=== PATIENT | female | born 1995 | race Hispanic/Latino ===

== ENCOUNTER 2017-06-12 22:51 | Inpatient (IN) | payer OTHER ==
[2017-06-12 23:16] VITALS: BMI 31.7
[2017-06-12 23:27] LABS: Hematocrit 34.8 % (36.0-47.0); Mean Platelet Volume 10.2 fL (7.4-10.4); Red Blood Cell (RBC) Count 4.54 mill/uL (4.20-5.40); White Blood Cell (WBC) Count 12.7 thou/uL (4.8-10.8)
[2017-06-12] MEDS ORDERED: Ondansetron HCl/PF 4 MG/2 ML Vial IVP PRN (23:42)
[2017-06-13] MEDS ORDERED: Misoprostol 200 MCG TAB PR PRN (00:08)
[2017-06-13] MEDS ORDERED: HYDROcodone/Acetaminophen 5/325 mg Tablet PO PRN ×3 (00:08→01:23)
[2017-06-13] MEDS ORDERED: LR / Pitocin 40 units/1000 ml 1,000 ML IV PRN (00:08)
[2017-06-13] MEDS ORDERED: Ibuprofen 800 MG TAB PO PRN (00:08)
[2017-06-13] MEDS ORDERED: Lidocaine 1% (PF) 30 ML VIAL SC PRN (00:08)
--- NOTE | 2017-06-13 00:11 | PDOC.LDHP ---
Labor and Delivery H&P Chief complaint: contractions HPI: pt presents to L&D [facility] for 20 mins. Denies ROM, but when she got here, there was water on the floor when she sat up Current gestational age (weeks): 39 Due date: 06/18/17 Dating criteria: last menstrual period (verifed with first trimester US at 8w) Grav: 2 Para: 1 Current complications: none Abnormal US findings: No Past Medical History: hx of CT prior to Current medications: pre-sandy vitamins, other (firocet, diclegis) Previous surgical history: none Allergies/Adverse Reactions: Allergies Allergy/AdvReac Type Severity Reaction Status Date / Time No Known Allergies Allergy Verified 06/12/17 23:17 Social history: tobacco use, alcohol use (prior to ) - Physical Exam Vital signs reviewed and normal: yes General: breathing through contractions Heart: RRR Lungs: CTAB Abdomen: gravid FHT: category 1 [place] contractions every: q1-2 - Vaginal Exam cm dilated: 6 Effacement: 100% Station: 1+ - OB Labs Blood type: O RH: positive HIV: negative RPR: negative HEPSAg: negative 1 hour GCT: negative GBS: negative - Assessment L&D Assessment: term patient in labor - Plan Plan: admit to L&D -: Anticipate
--- NOTE | 2017-06-13 00:42 | PDOC.OPDEL ---
OB Operative/Delivery Note Delivery Dr/Surgeon: Manju Montelongo CNM Pre-Delivery Diagnosis: active labor Procedure/Post Delivery Dx: spontaneous vaginal delivery Anesthesia: other (IV) - Findings A Sex: female Weight: 7 lb 2.08 oz - 5 min: 9 - Additional Findings/Plan Placenta delivered: spontaneous Repaired Obstetrical Laceration: none Estimated blood loss: 400 Post delivery plan: routine recovery
[2017-06-13] MEDS ORDERED: Bisacodyl 10 MG SUPP PR PRN (01:23)
[2017-06-13] MEDS ORDERED: Milk Of Magnesia 30 ML UDCUP PO PRN (01:23)
[2017-06-13] MEDS ORDERED: Ondansetron HCl/PF 4 MG/2 ML Vial IVP PRN ×2 (01:23→04:37)
[2017-06-13] MEDS ORDERED: Benzocaine/Menthol 20-0.5% 60 ML CAN TOP PRN (01:23)
[2017-06-13] MEDS ORDERED: LR / Pitocin 40 units/1000 ml 1,000 ML IV SCH (01:30)
[2017-06-13] MEDS ORDERED: Misoprostol 200 MCG TAB VAG SCH (01:30)
[2017-06-13] MEDS ORDERED: Carboprost 250 MCG/ML AMP ONE (03:34)
[2017-06-13] MEDS ORDERED: Fentanyl 100 MCG/2 ML VIAL ONE ×2 (03:44→04:19)
[2017-06-13] MEDS ORDERED: Carboprost 250 MCG/ML AMP IM ONE (03:50)
[2017-06-13] MEDS ORDERED: Midazolam HCl 2 mg/2 ml Vial ONE (03:52)
[2017-06-13 04:11] LABS: PTT 29.6 SEC (22.9-36.1); Prothrombin Time 13.5 SEC (12.0-14.7)
[2017-06-13 04:33] LABS: Band 1 % (5-11); Hematocrit 31.1 % (36.0-47.0); Hypochromia SLIGHT = 6-15 cells (100X) (0-5/hpf); Mean Platelet Volume 10.1 fL (7.4-10.4); Microcytosis MODERATE=15-30 cells (100X) (0-5/hpf); Neutrophil 84 % (42-75); Red Blood Cell (RBC) Count 4.06 mill/uL (4.20-5.40); White Blood Cell (WBC) Count 20.8 thou/uL (4.8-10.8)
[2017-06-13] MEDS ORDERED: Meperidine HCl/PF 25 MG/ML VIAL SLOW IVP PRN ×2 (04:37→06:10)
[2017-06-13] MEDS ORDERED: HYDROmorphone 2 MG/ML VIAL SLOW IVP PRN (04:37)
--- NOTE | 2017-06-13 04:45 | PDOC.EVN ---
Event Note - Event Note Event Note: I was called to the room for evaluation of bleeding 3 hours following precipitous delivery. EBL at time of delivery was 400ml, and another 132ml following this. At that time she received 800 ug of cytotec. On exam, there was a hemostatic laceration on the left vaginal sidewall. On bimanual exam, approximately 300 ml of clot was removed from the lower uterine segment. Cervix was difficult to visualize, so anesthesia was called for conscious sedation. After the patient was comfortable, further exam revealed no obvious vaginal or cervical lacerations. Approximately 200ml clot was removed from the lower uterine segment and a bakri balloon was placed. Placement in lower uterine segment confirmed on exam and on ultrasound. Total EBL (including delivery) was approximately 1300ml. VS remained stable. Labs drawn and pending. Patient tolerated the procedure well. Will continue to monitor.
[2017-06-13] MEDS ORDERED: Diphenoxylate HCl/Atropine Tablet PO PRN (04:51)
[2017-06-13 05:02] LABS: Fibrinogen 448 mg/dL (253-463)
[2017-06-13] MEDS: Ibuprofen 800 MG TAB PO SCH ×3 (06:09→22:24)
[2017-06-13 07:57] LABS: Hematocrit 30.7 % (36.0-47.0); Mean Platelet Volume 10.5 fL (7.4-10.4); Red Blood Cell (RBC) Count 3.99 mill/uL (4.20-5.40); White Blood Cell (WBC) Count 24.3 thou/uL (4.8-10.8)
[2017-06-13] MEDS ORDERED: Adacel (T-DAP) 0.5 ML VIAL IM ONE (09:00)
[2017-06-13] MEDS ORDERED: Measles/Mumps/Rubella 10 MCG/0.5 ML VIAL SC ONE (09:00)
--- NOTE | 2017-06-13 10:14 | PDOC.PP ---
Post Progress Note Post Day #: 0 -: pt is feeling well but c/o lower back pain and pain low in her abd Vital Signs (12 hours) Temp Pulse Resp BP 06/13/17 07:50 98.3 F 69 18 06/13/17 01:25 98.6 F 86 18 120/56 L 06/12/17 23:19 98.6 F 79 18 06/12/17 23:11 98.6 F 79 18 115/66 Weight Weight 185 lb - Physical Examination General: NAD Fundus firm & at: velasquez balloon in place. 30mls out in urometer Psychiatric: A&Ox3 Result Diagrams: 06/13/17 07:46 Additional Labs: Post Labs Blood Type O POSITIVE 06/12/17 23:16 Hep Bs Antigen Non-Reactive S/CO (NonReactive) 06/12/17 23:16 - Assessment/Plan A: G2now p2 s/p precipitous with late PPH and velasquez balloon placement by Dr Pollard 450ml from placement of [place] until 0700am From [id number] urine output was 60ml and blood was 30ml. P:Discussed case with Dr. Katz. Will plan to drain Velasquez Balloon gradually.
[2017-06-13] MEDS: HYDROcodone/Acetaminophen 5/325 mg Tablet PO PRN ×2 (12:19→16:13)
[2017-06-13] MEDS: Ferrous Sulfate 325 MG TAB PO SCH ×2 (15:40→16:13)
[2017-06-13] MEDS: Docusate (Surfak) 240 MG CAP PO SCH ×2 (15:40→22:24)
[2017-06-13] MEDS: Prenatal Vitamin 1 TAB PO SCH (15:41)
[2017-06-14] MEDS: Ibuprofen 800 MG TAB PO SCH ×3 (06:35→21:32)
[2017-06-14] MEDS: Prenatal Vitamin 1 TAB PO SCH (10:58)
[2017-06-14] MEDS: Ferrous Sulfate 325 MG TAB PO SCH ×2 (10:59→16:06)
[2017-06-14] MEDS: Docusate (Surfak) 240 MG CAP PO SCH ×2 (10:59→21:32)
--- NOTE | 2017-06-14 19:15 | PDOC.PP ---
Post Progress Note Post Day #: 1 PO intake tolerated: yes Flatus: yes Ambulation: yes Vital Signs (12 hours) Temp Pulse Resp BP 06/14/17 17:29 98.6 F 100 20 116/59 L 06/14/17 08:45 98.1 F 92 20 06/14/17 08:15 98.1 F 92 20 133/73 Weight Weight 185 lb - Physical Examination General: NAD Cardiovascular: no m/r/g Deviation from normal: tachycardia by auscultation Respiratory: clear to ausculation bilateral Abdominal: + bowel sounds, lochia (scant rubra) Fundus firm & at: -1 Extremities: negative homans (B) Skin: no rash Neurological: no gross focal deficits Psychiatric: A&Ox3 Result Diagrams: 06/13/17 07:46 Additional Labs: Post Labs Blood Type O POSITIVE 06/12/17 23:16 Hep Bs Antigen Non-Reactive S/CO (NonReactive) 06/12/17 23:16 (1) (spontaneous vaginal delivery) Code(s): O80 - ENCOUNTER FOR FULL-TERM UNCOMPLICATED DELIVERY Status: Acute (2) hemorrhage Code(s): O72.1 - OTHER IMMEDIATE HEMORRHAGE Status: Acute - Assessment/Plan A: PPD #1 s/p and PPH with genny balloon placement (performed by Dr. Pollard) P: Discontinue antibiotics Evaluate for discharge home tomorrow Lab/Radiology Result Diagrams: 06/13/17 07:46
[2017-06-14 21:21] VITALS: TEMP 98.5
[2017-06-15] MEDS: Ibuprofen 800 MG TAB PO SCH (06:29)
[2017-06-15 08:03] VITALS: BP 127/74
[2017-06-15] MEDS: Ferrous Sulfate 325 MG TAB PO SCH (08:57)
[2017-06-15] MEDS: Docusate (Surfak) 240 MG CAP PO SCH (08:58)
[2017-06-15] MEDS: Prenatal Vitamin 1 TAB PO SCH (08:58)
--- NOTE | 2017-06-15 10:34 | PDOC.PP ---
Post Progress Note Post Day #: 2 -: pt c/o pain in bw rectum and perinuim on right side. PO intake tolerated: yes Flatus: yes Ambulation: yes Vital Signs (12 hours) Temp Pulse Resp BP 06/15/17 08:02 98.5 F 102 H 20 127/74 06/15/17 07:50 98.5 F 102 H 20 Weight Weight 185 lb - Physical Examination General: NAD Cardiovascular: no m/r/g Deviation from normal: mild tachycardia with movement Respiratory: clear to ausculation bilateral Abdominal: + bowel sounds, lochia (minimal) Fundus firm & at: -2 Extremities: negative homans (B) Skin: no rash Neurological: no gross focal deficits Psychiatric: A&Ox3 Result Diagrams: 06/13/17 07:46 Additional Labs: Post Labs Blood Type O POSITIVE 06/12/17 23:16 Hep Bs Antigen Non-Reactive S/CO (NonReactive) 06/12/17 23:16 (1) (spontaneous vaginal delivery) Code(s): O80 - ENCOUNTER FOR FULL-TERM UNCOMPLICATED DELIVERY Status: Acute (2) hemorrhage Code(s): O72.1 - OTHER IMMEDIATE HEMORRHAGE Status: Acute Extended Physical Exam - Physical Exam Pelvic: nml external exam (Non tender bimanual exam. ) Rectal: hemorrhoids (painful to palpation) Neuro/Psych: oriented x3
== END 2017-06-15 12:25 | disposition home or self-care (01) | DRG 768 ==
LOC: L&D/OP 22:51 → L&D 23:18 → 3SE 06-13 09:43
PROVIDERS: ADMIT Obstetrics & Gynecology; ATTEND Obstetrics & Gynecology
PROC: 10E0XZZ Delivery of Products of Conception, External Approach (ICD-10-PCS; principal; 2017-06-13)
PROC: 0W3R7ZZ Control Bleeding in Genitourinary Tract, Via Natural or Artificial Opening (ICD-10-PCS; 2017-06-13)
DX: O71.82 Other specified trauma to perineum and vulva (principal); Z37.0 Single live birth; O72.1 Other immediate postpartum hemorrhage; K64.8 Other hemorrhoids; O62.3 Precipitate labor; Z3A.39 39 weeks gestation of pregnancy; Z87.891 Personal history of nicotine dependence; Z67.40 Type O blood, Rh positive
CPT/HCPCS: 36415; 76815; 85027; 85049; 85300; 85362; 85379; 85384; 85610; 85730; 86780; 86850; 86900; 86901; 87340; A4216; J0595; J2001; J2175; J2210; J2250; J2270; J3010; J3490

== ENCOUNTER 2017-12-06 07:14 | Emergency (ER) | payer OTHER, SELFPAY | END 2017-12-06 08:10 | disposition home or self-care (01) | LOC: ERS 07:14 | DX: T78.40XA Allergy, unspecified, initial encounter (principal); J45.909 Unspecified asthma, uncomplicated | CPT/HCPCS: 99282 ==

== ENCOUNTER 2017-12-29 13:38 | Emergency (ER) | payer SELFPAY ==
[2017-12-29] MEDS ORDERED: Dexamethasone 4 mg/ml Vial ONE (14:02)
== END 2017-12-29 14:30 | disposition home or self-care (01) ==
LOC: ERS 13:38
DX: J02.9 Acute pharyngitis, unspecified (principal); R11.2 Nausea with vomiting, unspecified; J45.909 Unspecified asthma, uncomplicated
CPT/HCPCS: 87081; 87430; 99283; J1100

== ENCOUNTER 2021-06-04 10:19 | Outpatient (CLI) | payer OTHER | END 2021-06-04 10:20 | disposition home or self-care (01) | LOC: BICULT 10:19 | PROVIDERS: ATTEND Family Medicine | DX: Z34.82 Encounter for supervision of other normal pregnancy, second trimester (principal); Z3A.19 19 weeks gestation of pregnancy | CPT/HCPCS: 76805 ==